=== PATIENT | male | born 1935 | race Caucasian/White ===

== ENCOUNTER → 2016-09-10 | Outpatient (CLI) | payer MEDICARE ==
[~2016-09-10] MED LIST: HYDR12.58 PO; LEVO25TA4 PO; LEVO50TA PO; OLME5TAB4 PO
== END | disposition home or self-care (01) ==
LOC: STAR 09:12
PROVIDERS: ATTEND Otolaryngology
DX: Z01.818 Encounter for other preprocedural examination (principal); R94.31 Abnormal electrocardiogram [ECG] [EKG]; D10.5 Benign neoplasm of other parts of oropharynx
CPT/HCPCS: 93005

== ENCOUNTER 2016-09-14 06:06 | Day surgery (SDC) | payer MEDICARE ==
[~2016-09-14] VITALS: Ht 182.9 cm; Wt 103.0 kg
[2016-09-14] MEDS ORDERED: LIDOCAINE/PF 1%, 30ML ONE (06:50)
[2016-09-14] MEDS ORDERED: EPINEPHRINE 1 MG/ML, 1ML ONE (06:50)
[2016-09-14 07:00] VITALS: BP 118/76
[2016-09-14] MEDS ORDERED: GLYCOPYRROLATE 0.2MG/1ML ONE (08:32)
[2016-09-14] MEDS ORDERED: DEXAMETHASONE 4 MG/ML, 1ML ONE (08:32)
[2016-09-14] MEDS ORDERED: ONDANSETRON 2MG/ML, 2ML ONE (08:32)
[2016-09-14] MEDS ORDERED: ROCURONIUM 10 MG/ML ONE (08:32)
[2016-09-14] MEDS ORDERED: CEFAZOLIN 1,000 MG ONE (08:32)
[2016-09-14] MEDS ORDERED: SUCCINYLCHOLINE 20 MG/ML, 10ML ONE (08:32)
[2016-09-14] MEDS ORDERED: FENTANYL PF 100 MCG/2ML ONE (08:32)
[2016-09-14] MEDS ORDERED: PROPOFOL 10 MG/ML, 20ML ONE (08:32)
[2016-09-14] MEDS ORDERED: ACETAMINOPHEN 650 MG/20.3 ML UDC ONE (09:19)
[2016-09-14] MEDS ORDERED: OXYcodone 5 MG/5 ML ORAL.SOL UDC ONE (09:19)
[2016-09-14] MEDS ORDERED: PROMETHAZINE 25 MG/ML, 1ML IV PRN (09:30)
[2016-09-14] MEDS ORDERED: ACETAMINOPHEN 325 MG TABLET PO PRN (09:30)
[2016-09-14] MEDS ORDERED: FENTANYL PF 100 MCG/2ML IV PRN (09:30)
[2016-09-14] MEDS ORDERED: hydrALAzine 20 MG/ML, 1ML IV PRN (09:30)
[2016-09-14] MEDS ORDERED: HYDROmorphone 1 MG/ML, 1ML IV PRN (09:30)
[2016-09-14] MEDS ORDERED: OXYcodone 5 MG/5 ML ORAL.SOL UDC PO PRN (09:30)
[2016-09-14] MEDS ORDERED: ONDANSETRON 2MG/ML, 2ML IVPush PRN (09:30)
[2016-09-14] MEDS ORDERED: LABETALOL 5MG/ML, 20ML IV PRN (09:30)
== END 2016-09-14 10:43 ==
LOC: OUT 06:06
PROVIDERS: ATTEND Otolaryngology
DX: D10.39 Benign neoplasm of other parts of mouth (principal); F15.90 Other stimulant use, unspecified, uncomplicated; I10 Essential (primary) hypertension; E03.9 Hypothyroidism, unspecified; Z98.890 Other specified postprocedural states; Z88.8 Allergy status to other drugs, medicaments and biological substances
CPT/HCPCS: 42104; 88304; J0330; J0690; J1100; J2405; J2704; J3010; J0171; J3490

== ENCOUNTER → 2017-08-26 | Outpatient (CLI) | payer MEDICARE ==
[~2017-08-26] MED LIST changes: +MULT1TAB60 PO; +PSYL174P2 PO
[2017-08-26 12:38] LABS: ALANINE AMINOTRANSFERASE 26 U/L (12-78); ALBUMIN 3.9 g/dL (3.4-5.0); ANION GAP 4 mmol/L (5-15); CALCIUM 8.2 mg/dL (8.5-10.1); CHLORIDE 111 mmol/L (98-107); CREATININE 1.38 mg/dL (0.7-1.3)
[2017-08-26 12:40] LABS: ALKALINE PHOSPHATASE 68 U/L (45-117); BILIRUBIN,TOTAL 0.6 mg/dL (0.2-1.0); TOTAL PROTEIN 6.8 g/dL (6.4-8.2)
== END ==
LOC: STAR 11:23
PROVIDERS: ATTEND Internal Medicine Geriatric Medicine
DX: Z01.818 Encounter for other preprocedural examination (principal); R94.31 Abnormal electrocardiogram [ECG] [EKG]
CPT/HCPCS: 36415; 80053; 93005

== ENCOUNTER 2017-08-30 07:32 | Day surgery (SDC) | payer MEDICARE ==
[2017-08-26 14:16] VITALS: BP 139/94
[~2017-08-30] VITALS: Ht 182.9 cm; Wt 105.0 kg
[2017-08-30] MEDS ORDERED: LACTATED RINGERS 1,000 ML IV SCH (07:57)
[2017-08-30] MEDS ORDERED: LIDOCAINE-MPF 1%, 2ML INFIL ONE (08:00)
[2017-08-30 08:03] VITALS: BP 139/94
[2017-08-30] MEDS ORDERED: PROPOFOL 50 ML ONE (08:39)
[2017-08-30] MEDS ORDERED: EPHEDRINE 50 MG/ML, 1ML IVPush PRN (09:30)
[2017-08-30] MEDS ORDERED: ONDANSETRON ODT 8 MG PO PRN (09:30)
[2017-08-30] MEDS ORDERED: FENTANYL PF 100 MCG/2ML IV PRN (09:30)
[2017-08-30] MEDS ORDERED: LABETALOL 5MG/ML, 20ML IV PRN (09:30)
[2017-08-30] MEDS ORDERED: MIDAZOLAM 1 MG/ML, 2ML IV PRN (09:30)
== END 2017-08-30 10:45 ==
LOC: OUT 07:32
PROVIDERS: ATTEND Internal Medicine Geriatric Medicine
DX: K31.89 Other diseases of stomach and duodenum (principal)
CPT/HCPCS: 43239; 43259; J2704; J3490; J7120

== ENCOUNTER 2019-08-22 07:58 | Observation (INO) | payer MEDICARE ==
[~2019-08-22] VITALS: Ht 182.9 cm; Wt 102.8 kg
[~2019-08-22 07:58] MED LIST changes: +APIX5TAB PO; -HYDR12.58 PO; +HYDROCHLOROTH12.5 MG PO; +MULT-449 PO; -MULT1TAB60 PO
[2019-08-22] MEDS ORDERED: SODIUM CHLORIDE 0.9% 1,000 ML IV ONE (08:10)
[2019-08-22] MEDS ORDERED: DILTIAZEM 5 MG/ML, 5ML ONE (08:27)
[2019-08-22] MEDS ORDERED: SODIUM CHLORIDE FLUSH 10ML SYR IVF ONE (08:30)
[2019-08-22] MEDS ORDERED: DILTIAZEM 5 MG/ML, 5ML IVPush ONE (08:30)
--- NOTE | 2019-08-22 08:32 | NUR ---
PT HAS CO OF WEAKNESS AND PALPITATIONS SINCE YESTERDAY. PT PRESENTS W AFIB RATE 140- 150. DENIES CP OR SOB. SHOE STAINER APPLIED. DENIES ANY FALLS. IV ESTABLSIHED. PT CONVERTED BACK TO NSR 80S. EKG IN PROCESS. AWARE, HOLD DILT FOR NOW
[2019-08-22 08:50] LABS: BASOPHILS # (AUTO) 0.07 x10^3/uL (0-0.1); BASOPHILS % (AUTO) 1 % (0-1); EOSINOPHILS # (AUTO) 0.13 x10^3/uL (0-0.4); EOSINOPHILS % (AUTO) 2 % (1-7); LYMPHOCYTES # (AUTO) 2.01 x10^3/uL (1-3.4); LYMPHOCYTES % (AUTO) 23 % (22-44); MD NO; MEAN CORPUSCULAR HEMOGLOBIN 30.1 pg (27.5-34.5); MEAN CORPUSCULAR HGB CONC 33.5 g/dL (33.2-36.2); MEAN CORPUSCULAR VOLUME 89.8 fL (81-97); MEAN PLATELET VOLUME 7.4 fL (7.4-10.4); MONOCYTES # (AUTO) 0.78 x10^3/uL (0.2-0.8); MONOCYTES % (AUTO) 9 % (2-9); NEUTROPHILS # (AUTO) 5.82 x10^3/uL (1.8-6.8); NEUTROPHILS % (AUTO) 66 % (42-75); PLATELET COUNT 215 x10^3/uL (130-400); RED BLOOD COUNT 5.69 x10^6/uL (4.38-5.82); RED CELL DISTRIBUTION WIDTH 13.5 % (9.4-14.8)
[2019-08-22 09:05] LABS: ALBUMIN 3.7 g/dL (3.4-5.0); ANION GAP 6 mmol/L (5-15); CALCIUM 8.8 mg/dL (8.5-10.1); CHLORIDE 110 mmol/L (98-107)
[2019-08-22 09:14] LABS: ALANINE AMINOTRANSFERASE 30 U/L (12-78); ALKALINE PHOSPHATASE 58 U/L (45-117); BILIRUBIN,TOTAL 1.2 mg/dL (0.2-1.0); CREATININE 1.76 mg/dL (0.7-1.3); TOTAL PROTEIN 7.1 g/dL (6.4-8.2)
--- NOTE | 2019-08-22 09:20 | NUR ---
PT RESTING, VSS. PT DENIES CP OR SOB. AT BEDSIDE. NSR 68
[2019-08-22 09:35] LABS: FREE T4 (FREE THYROXINE) 1.44 ng/dL (0.76-1.46)
--- NOTE | 2019-08-22 09:49 | NUR ---
GAVE PT WARM BLANKET, PLAN TO [facility]. PT AWARE.
--- NOTE | 2019-08-22 10:19 | NUR ---
report to Marielle
[2019-08-22 11:03] VITALS: BP 130/81
[2019-08-22] MEDS ORDERED: [UNRECOGNIZED DRUG - REMARK] PO (11:07)
[2019-08-22] MEDS ORDERED: ONDANSETRON 2MG/ML, 2ML IVPush PRN (12:00)
[2019-08-22] MEDS ORDERED: ACETAMINOPHEN 325 MG TABLET PO PRN (12:00)
[2019-08-22] MEDS ORDERED: LEVOTHYROXINE 25 MCG TABLET PO ONE (12:00)
[2019-08-22] MEDS ORDERED: hydrALAzine 20 MG/ML, 1ML IVPush PRN (12:00)
[2019-08-22] MEDS: SODIUM CHLORIDE 0.9% 1,000 ML IV SCH (12:45)
[2019-08-22] MEDS: METOPROLOL TARTRATE 25 MG TAB PO SCH ×2 (12:45→21:43)
[2019-08-22 13:40] VITALS: BP 121/75
[2019-08-22 16:48] LABS: ANION GAP 5 mmol/L (5-15); CALCIUM 7.9 mg/dL (8.5-10.1); CHLORIDE 109 mmol/L (98-107); CREATININE 1.43 mg/dL (0.7-1.3)
[2019-08-22 20:16] VITALS: BP 133/84
[2019-08-22] MEDS: APIXABAN 5 MG TABLET PO SCH (20:23)
[2019-08-23 00:44] VITALS: BP 109/67
[2019-08-23 05:23] LABS: BASOPHILS # (AUTO) 0.03 x10^3/uL (0-0.1); BASOPHILS % (AUTO) 1 % (0-1); EOSINOPHILS # (AUTO) 0.19 x10^3/uL (0-0.4); EOSINOPHILS % (AUTO) 3 % (1-7); LYMPHOCYTES # (AUTO) 1.85 x10^3/uL (1-3.4); LYMPHOCYTES % (AUTO) 30 % (22-44); MD NO; MEAN CORPUSCULAR HEMOGLOBIN 29.6 pg (27.5-34.5); MEAN CORPUSCULAR HGB CONC 33.4 g/dL (33.2-36.2); MEAN CORPUSCULAR VOLUME 88.6 fL (81-97); MEAN PLATELET VOLUME 7.4 fL (7.4-10.4); MONOCYTES # (AUTO) 0.52 x10^3/uL (0.2-0.8); MONOCYTES % (AUTO) 9 % (2-9); NEUTROPHILS % (AUTO) 57 % (42-75); PLATELET COUNT 160 x10^3/uL (130-400); RED BLOOD COUNT 4.78 x10^6/uL (4.38-5.82); RED CELL DISTRIBUTION WIDTH 13.4 % (9.4-14.8)
[2019-08-23 05:36] LABS: ANION GAP 6 mmol/L (5-15); CALCIUM 7.8 mg/dL (8.5-10.1); CHLORIDE 113 mmol/L (98-107); CREATININE 1.38 mg/dL (0.7-1.3)
[2019-08-23] MEDS ORDERED: LEVOTHYROXINE 75 MCG TABLET PO SCH (06:00)
[2019-08-23 07:39] VITALS: BP 124/73
[2019-08-23] MEDS: METOPROLOL TARTRATE 25 MG TAB PO SCH (08:14)
[2019-08-23] MEDS: APIXABAN 5 MG TABLET PO SCH (08:53)
[2019-08-23] MEDS ORDERED: LEVO75TA5 PO (09:11)
[2019-08-23] MEDS: SODIUM CHLORIDE 0.9% 1,000 ML IV SCH (09:46)
== END 2019-08-23 10:24 | disposition home or self-care (01) ==
LOC: ED 08:46 → EDIP 09:39 → INTOOBSV 09:39 → 5SO 10:55 → DCLOUNGE 08-23 10:17
PROVIDERS: ADMIT Family Medicine; ATTEND Hospitalist
DX: I48.20 Chronic atrial fibrillation, unspecified (principal); R42 Dizziness and giddiness; I12.9 Hypertensive chronic kidney disease with stage 1 through stage 4 chronic kidney disease, or unspecified chronic kidney disease; N18.9 Chronic kidney disease, unspecified; N17.9 Acute kidney failure, unspecified; E03.9 Hypothyroidism, unspecified; I51.7 Cardiomegaly; I48.0 Paroxysmal atrial fibrillation; Z79.899 Other long term (current) drug therapy; Z79.01 Long term (current) use of anticoagulants
CPT/HCPCS: 36415; 71045; 80048; 80053; 84439; 84443; 85025; 93005; 96360; 96361; 99285; G0378; J7030

== ENCOUNTER → 2019-09-14 | Outpatient (CLI) | payer MEDICARE ==
[~2019-09-14] MED LIST changes: +LEVO75TA5 PO; +[UNRECOGNIZED DRUG - REMARK] PO
== END | disposition home or self-care (01) ==
LOC: CVU 15:25
PROVIDERS: ATTEND Internal Medicine Cardiovascular Disease
DX: R94.31 Abnormal electrocardiogram [ECG] [EKG] (principal); I48.91 Unspecified atrial fibrillation
CPT/HCPCS: 93306

== ENCOUNTER → 2019-11-26 | Outpatient (CLI) | payer MEDICARE ==
[~2019-11-26] MED LIST changes: +REGADENOSON 0.4 MG/5 ML SYRINGE ONE
== END | disposition home or self-care (01) ==
LOC: CFH 12:24
PROVIDERS: ATTEND Internal Medicine Cardiovascular Disease
DX: I48.91 Unspecified atrial fibrillation (principal); I10 Essential (primary) hypertension; R94.31 Abnormal electrocardiogram [ECG] [EKG]
CPT/HCPCS: 78452; 93017; A9502; J2785